=== PATIENT | male | born 1980 | race Two or more races ===

== ENCOUNTER 2016-06-25 13:22 | Emergency (ER) | payer OTHER ==
[~2016-06-25] VITALS: Ht 177.8 cm; Wt 73.8 kg
[2016-06-25 13:26] VITALS: BP 156/88; PULSE 81; RESP 18; TEMP 99.7; O2SAT 97
[2016-06-25] MEDS ORDERED: ONDANSETRON HCL 4 MG/2 ML VIAL IVP ONE (13:45)
[2016-06-25] MEDS ORDERED: HYDROmorphone HCL PF 1 MG/ML VIAL IVS ONE (13:45)
[2016-06-25] MEDS ORDERED: SODIUM CHLORIDE 0.9% FLUSH 10 ML FLUSH IV FLUSH PRN (13:45)
[2016-06-25] MEDS ORDERED: SODIUM CHLOR 0.9% 1000 ML INJ 1,000 ML IV SCH (13:45)
[2016-06-25 13:49] VITALS: BP 161/95; PULSE 70; RESP 16; O2SAT 97; O2SAT 98
--- NOTE | 2016-06-25 14:05 | PD ---
HPI Chief Complaint: Injury Time Seen by Provider: 13:39 Travel History International Travel<30 days: No Contact w/Intl Traveler<30days: No Traveled to known affect area: No History of Present Illness HPI 36-year-old male arrives by private vehicle. He was struck in the chest 7 foot foot metal beam about 6 hours prior to ER arrival. A loss of consciousness ensued afterwards. Prior to he was somewhat dyspneic. He remembers waking up with friends around. Since then he sat himself down and rested. He reports feeling fatigued since then. He has mild persistent chest pain in the area where he was injured. In the ER he is no shortness of breath. PFSH Past Medical History Medical History: Denies Significant Hx Diabetes: Yes (WATCH DIET) Diminished Hearing: No Tetanus Vaccination: < 5 Years Influenza Vaccination: No Past Surgical History Surgical History: No Previous Surgery Social History Alcohol Use: Yes (OCC) Tobacco Use: No Substance Use: No Allergies-Medications (Allergen,Severity, Reaction): Coded Allergies: No Known Allergies (Unverified , 06/25/16) Reported Meds & Prescriptions Reported Meds & Active Scripts Active Motrin Ib (Ibuprofen) 200 Mg Tab 600 Mg PO Q6H PRN 10 Days Review of Systems Except as stated in HPI: all other systems reviewed are Neg General / Constitutional: No: Fever Physical Exam Narrative GENERAL: 36-year-old male pleasant well-nourished well-developed SKIN: Focused skin assessment warm/dry. HEAD: Atraumatic. Normocephalic. EYES: Pupils equal and round. No scleral icterus. No injection or drainage. ENT: No nasal bleeding or discharge. Mucous membranes pink and moist. NECK: Trachea midline. No JVD. CARDIOVASCULAR: Regular rate and rhythm. No murmur appreciated. Linear erythema along the left anterior chest wall 2 cm x 7 cm. Minimal tenderness with pressure against the sternum. RESPIRATORY: No accessory muscle use. Clear to auscultation. Breath sounds equal bilaterally. GASTROINTESTINAL: Abdomen soft, non-tender, nondistended. Hepatic and splenic margins not palpable. MUSCULOSKELETAL: No obvious deformities. No clubbing. No cyanosis. No edema. NEUROLOGICAL: Awake and alert. No obvious cranial nerve deficits. Motor grossly within normal limits. Normal speech. PSYCHIATRIC: Appropriate mood and affect; insight and judgment normal. Data Data Last Documented VS Vital Signs Date Time Temp Pulse Resp B/P Pulse Ox O2 Delivery O2 Flow Rate FiO2 06/25/16 16:56 Room Air 06/25/16 16:56 80 16 117/88 100 06/25/16 13:26 99.7 Vital signs reviewed Orders Complete Blood Count With Diff (06/25/16 13:45) Comprehensive Metabolic Panel (06/25/16 13:45) Lipase (06/25/16 13:45) Urinalysis - C+S If Indicated (06/25/16 13:45) Iv Access Insert/Monitor (06/25/16 13:45) Ecg Monitoring (06/25/16 13:45) Oximetry (06/25/16 13:45) Ondansetron Inj (Zofran Inj) (06/25/16 13:45) Sodium Chlor 0.9% 1000 Ml Inj (Ns 1000 M (06/25/16 13:45) Sodium Chloride 0.9% Flush (Ns Flush) (06/25/16 13:45) Electrocardiogram (06/25/16 13:45) Chest, Single Ap (06/25/16 13:45) Hydromorphone Pf Inj (Dilaudid Pf Inj) (06/25/16 13:45) Forearm (2vws) (06/25/16 14:57) Ice/Cold Pack (06/25/16 14:57) Elbow, Complete (4 Vws) (06/25/16 14:59) Humerus (Min 2vws) (06/25/16 14:59) Labs Laboratory Tests Test 06/25/16 06/25/16 14:00 14:50 White Blood Count 10.4 TH/MM3 Red Blood Count 5.09 MIL/MM3 Hemoglobin 14.7 GM/DL Hematocrit 44.4 % Mean Corpuscular Volume 87.3 FL Mean Corpuscular Hemoglobin 28.9 PG Mean Corpuscular Hemoglobin 33.1 % Concent Red Cell Distribution Width 12.4 % Platelet Count 265 TH/MM3 Mean Platelet Volume 8.5 FL Neutrophils (%) (Auto) 87.3 % Lymphocytes (%) (Auto) 8.4 % Monocytes (%) (Auto) 3.1 % Eosinophils (%) (Auto) 0.0 % Basophils (%) (Auto) 1.2 % Neutrophils # (Auto) 9.1 TH/MM3 Lymphocytes # (Auto) 0.9 TH/MM3 Monocytes # (Auto) 0.3 TH/MM3 Eosinophils # (Auto) 0.0 TH/MM3 Basophils # (Auto) 0.1 TH/MM3 CBC Comment DIFF FINAL Differential Comment Sodium Level 141 MEQ/L Potassium Level 4.1 MEQ/L Chloride Level 104 MEQ/L Carbon Dioxide Level 26.6 MEQ/L Anion Gap 10 MEQ/L Blood Urea Nitrogen 15 MG/DL Creatinine 1.30 MG/DL Estimat Glomerular Filtration 62 ML/MIN Rate Random Glucose 107 MG/DL Calcium Level 9.6 MG/DL Total Bilirubin 0.8 MG/DL Aspartate Amino Transf 21 U/L (AST/SGOT) Alanine Aminotransferase 29 U/L (ALT/SGPT) Alkaline Phosphatase 91 U/L Total Protein 8.4 GM/DL Albumin 4.2 GM/DL Lipase 117 U/L Urine Color YELLOW Urine Turbidity CLEAR Urine pH 7.0 Urine Specific [place] 1.003 Urine Protein NEG mg/dL Urine Glucose (UA) NEG mg/dL Urine Ketones NEG mg/dL Urine Occult Blood NEG Urine Nitrite NEG Urine Bilirubin NEG Urine Leukocyte Esterase NEG Microscopic Urinalysis Comment CULT NOT INDICATED MDM Medical Decision Making Medical Screen Exam Complete: Yes Emergency Medical Condition: Yes Differential Diagnosis Rib fracture, pulmonary contusion, splenic injury, arrhythmia, dehydration Narrative Course CBC & BMP Diagram 06/25/16 14:00 LFTs normal Lipase normal UA normal Last 24 hours Impressions Humerus X-Ray 06/25/16 1459 Signed Impressions: Service Date/Time: June 15:38 - CONCLUSION: No acute osseous injury. Flaquito Monroy MD Elbow X-Ray 06/25/16 1459 Signed Impressions: Service Date/Time: June 15:20 - CONCLUSION: No acute fracture or effusion. Flaquito Monroy MD Radius/Ulna X-Ray 06/25/16 1457 Signed Impressions: Service Date/Time: June 15:23 - CONCLUSION: No acute osseous injury. Flaquito Monroy MD Chest X-Ray 06/25/16 1345 Signed Impressions: Service Date/Time: June 14:20 - CONCLUSION: The lungs are clear. Mitchell Wood MD The patient is resting comfortably and feels better, is alert and in no distress. The patients results and examination findings were discussed. The repeat examination is unremarkable and benign. The history, exam, diagnostic testing, and current condition do not suggest any significant pathology to warrant further testing, continued ED treatment, admission, or surgical evaluation at this point. The vital signs have been stable. The patient does not have uncontrollable pain, intractable vomiting, or other significant symptoms. The patient's condition is stable and appropriate for discharge. The patient will pursue further outpatient evaluation with a primary care physician or other designated or consulting physician as indicated in the discharge instructions. The patient expressed understanding and was agreeable with this plan. Diagnosis Primary Impression: Chest wall injury Qualified Code: S29.9XXA - Chest wall injury, initial encounter Additional Impressions: Syncope and collapse Injury of left upper extremity Qualified Code: S49.92XA - Injury of left upper extremity, initial encounter Referrals: Primary Care Physician 2 days Additional Instructions: You have a choice when it comes to health care, and we are glad that you chose [facility]. Hopefully, we have met your expectations on today's visit. You are welcome to return to [facility] at any time, as we are committed to meeting the health care needs of our community. Med/Other Pt SpecificInfo: Prescription(s) given Scripts Ibuprofen (Motrin Ib)200 Mg [id number] Mg PO Q6H PRN (PAIN SCALE 6 TO 10) 10 Days Ref 0 Prov:Kevan Best MD 06/25/16 Disposition: 01 DISCHARGE HOME Condition: Stable Kevan Best MD Jun 25, 2016 14:05
[2016-06-25 14:22] LABS: AUTOMATED NEUTROPHIL # 9.1 TH/MM3 (1.8-7.7); BASOPHIL # 0.1 TH/MM3 (0-0.2); BASOPHIL % 1.2 % (0.0-2.0); HEMATOCRIT 44.4 % (39.0-51.0); LYMPH % 8.4 % (9.0-44.0); LYMPHOCYTE # 0.9 TH/MM3 (1.0-4.8); MEAN CELL VOLUME 87.3 FL (80.0-100.0); MEAN CORPUSCULAR HEMOGLOBIN 28.9 PG (27.0-34.0); MEAN CORPUSCULAR HGB CONC 33.1 % (32.0-36.0); MONO % 3.1 % (0.0-8.0); NEUT % 87.3 % (16.0-70.0); PLATELET COUNT 265 TH/MM3 (150-450); RED BLOOD COUNT 5.09 MIL/MM3 (4.50-5.90); RED CELL DISTRIBUTION WIDTH 12.4 % (11.6-17.2); WHITE BLOOD COUNT 10.4 TH/MM3 (4.0-11.0)
[2016-06-25 14:30] LABS: CHLORIDE 104 MEQ/L (98-107); HEMO FLAGS DIFF FINAL; POTASSIUM 4.1 MEQ/L (3.5-5.1); SODIUM (NA) 141 MEQ/L (136-145)
[2016-06-25 14:34] LABS: ANION GAP 10 MEQ/L (5-15); BICARBONATE 26.6 MEQ/L (21.0-32.0); BLOOD UREA NITROGEN 15 MG/DL (7-18)
[2016-06-25 14:37] LABS: ALT (GPT) 29 U/L (12-78); AST (GOT) 21 U/L (15-37); GLOMERULAR FILTRATION RATE 62 ML/MIN (>89)
[2016-06-25 14:39] LABS: TOTAL BILIRUBIN ADULT 0.8 MG/DL (0.2-1.0)
[2016-06-25 14:40] LABS: ALKALINE PHOSPHATASE 91 U/L (45-117)
[2016-06-25 15:00] LABS: BLOOD, URINE NEG (NEG); GLUCOSE,URINE NEG (NEG); KETONE, URINE NEG (NEG); NITRITE,URINE NEG (NEG)
[2016-06-25 15:02] VITALS: BP 161/95; PULSE 100; RESP 16; O2SAT 100
[2016-06-25 15:05] LABS: URINE COLOR YELLOW (YELLW/STRAW)
[2016-06-25 15:06] LABS: COMMENT (UR) CULT NOT INDICATED; CULTURE IF INDICATED CULT NOT INDICATED
--- NOTE | 2016-06-25 15:18 | RADHPO ---
EXAM DATE/TIME: 06/25/2016 14:20 [facility] COMPARISON: No previous studies available for comparison. INDICATIONS : Left anterior chest pain post being hit with metal beam. MEDICAL HISTORY : None. SURGICAL HISTORY : None. ENCOUNTER: Initial ACUITY: 1 day PAIN SCORE: 7/10 LOCATION: Left anterior chest FINDINGS: A single view of the chest demonstrates the lungs to be symmetrically aerated without evidence of mas s, infiltrate or effusion. The cardiomediastinal contours are unremarkable. Healed fracture of mids haft right clavicle.. CONCLUSION: The lungs are clear. Mitchell Wood MD on June 25, 2016 at 15:16 Board Certified Radiologist. This report was verified electronically.
[2016-06-25] MEDS ORDERED: MOTR200T4 PO (16:29)
--- NOTE | 2016-06-25 16:34 | RADHPO ---
EXAM DATE/TIME: 06/25/2016 15:20 [facility] COMPARISON: No previous studies available for comparison. INDICATIONS : Left elbow pain. Hit by metal at work. MEDICAL HISTORY : None. SURGICAL HISTORY : None. ENCOUNTER: Initial ACUITY: 1 day PAIN SCORE: 7/10 LOCATION: Left elbow FINDINGS: Multiple view examination of the left elbow demonstrates no soft tissue swelling, joint effusion, or fracture. The osseous structures are in normal alignment. Bony mineralization is normal. CONCLUSION: No acute fracture or effusion. Flaquito Monroy MD on June 25, 2016 at 16:32 Board Certified Radiologist. This report was verified electronically.
--- NOTE | 2016-06-25 16:35 | RADHPO ---
EXAM DATE/TIME: 06/25/2016 15:23 [facility] COMPARISON: No previous studies available for comparison. INDICATIONS : Left forearm pain. Hit by metal at work. MEDICAL HISTORY : None. SURGICAL HISTORY : None. ENCOUNTER: Initial ACUITY: 1 day PAIN SCORE: 7/10 LOCATION: Left forearm. FINDINGS: Two view examination of the left forearm demonstrates no evidence of fracture or dislocation. Bony m ineralization is normal. The soft tissue structures are intact. CONCLUSION: No acute osseous injury. Flaquito Monroy MD on June 25, 2016 at 16:33 Board Certified Radiologist. This report was verified electronically.
[2016-06-25 16:56] VITALS: BP 117/88; PULSE 80; RESP 16; O2SAT 100
--- NOTE | 2016-06-25 16:59 | RADHPO ---
EXAM DATE/TIME: 06/25/2016 15:38 [facility] COMPARISON: No previous studies available for comparison. INDICATIONS : Left arm pain. Hit by piece of metal at work. MEDICAL HISTORY : None. SURGICAL HISTORY : None. ENCOUNTER: Initial ACUITY: 1 day PAIN SCORE: 9/10 LOCATION: Left humerus FINDINGS: Two view examination of the left humerus demonstrates no evidence of fracture or dislocation. Bony m ineralization is normal. The soft tissue structures are intact. CONCLUSION: No acute osseous injury. Flaquito Monroy MD on June 25, 2016 at 16:57 Board Certified Radiologist. This report was verified electronically.
--- NOTE | 2016-06-26 13:43 | EKG ---
Date Performed: 06/25/2016 Time Performed: 13:57:06 PTAGE: 36 years EKG: Sinus rhythm rSr'(V1) - probable normal variant Septal T wave changes are nonspecific Borderline ECG NO PREVIOUS TRACING DOCTOR: Alejandro Barrios Interpretating Date/Time 06/26/2016 13:38:11
== END 2016-06-25 16:56 | disposition home or self-care (01) ==
LOC: PHED 13:22
DX: S29.9XXA Unspecified injury of thorax, initial encounter (principal); R55 Syncope and collapse; S49.92XA Unspecified injury of left shoulder and upper arm, initial encounter; R53.83 Other fatigue; R94.31 Abnormal electrocardiogram [ECG] [EKG]; E11.9 Type 2 diabetes mellitus without complications; W22.8XXA Striking against or struck by other objects, initial encounter
CPT/HCPCS: 71010; 73060; 73080; 73090; 80053; 81001; 83690; 85025; 93005; 96361; 96374; 96375; 99284; J1170; J2405; J7030

== ENCOUNTER 2016-06-30 13:09 | Emergency (ER) | payer OTHER ==
[~2016-06-30] VITALS: Ht 177.8 cm; Wt 72.4 kg
[~2016-06-30 13:09] MED LIST: MOTR200T4 PO
[2016-06-30 13:13] VITALS: BP 172/95; PULSE 65; RESP 16; TEMP 98.3; O2SAT 98
--- NOTE | 2016-06-30 15:35 | PD ---
HPI Chief Complaint: Injury Time Seen by Provider: 15:35 Travel History International Travel<30 days: No Contact w/Intl Traveler<30days: No Traveled to known affect area: No History of Present Illness HPI 36-year-old male presents to the ED for evaluation of left posterior shoulder pain. Onset gradual over the last week. Worsened by certain movements. Patient denies numbness, tingling, weakness, limitations to range of motion of the left upper extremity. The patient states that he was struck in the left chest by a beam on the job site 1 week ago. He momentarily lost consciousness and was brought to [facility] for evaluation. He was diagnosed with contusion and provided a prescription for ibuprofen. He endorses compliance with the medication and improvement of his pain but not complete resolution. PFSH Past Medical History Medical History: Denies Significant Hx Hx Anticoagulant Therapy: No Cardiovascular Problems: No Chemotherapy: No Cerebrovascular Accident: No Diabetes: No Diminished Hearing: No Respiratory: No Influenza Vaccination: No Past Surgical History Surgical History: No Previous Surgery Hysterectomy: No Social History Alcohol Use: No Tobacco Use: No Substance Use: No Allergies-Medications (Allergen,Severity, Reaction): Coded Allergies: No Known Allergies (Unverified , 06/30/16) Reported Meds & Prescriptions Reported Meds & Active Scripts Active Flexeril (Cyclobenzaprine HCl) 10 Mg Tab 10 Mg PO TID Motrin Ib (Ibuprofen) 200 Mg Tab 600 Mg PO Q6H PRN 10 Days Review of Systems Except as stated in HPI: all other systems reviewed are Neg Physical Exam Narrative GENERAL: Well-nourished, well-developed male in no acute distress. SKIN: Focused skin assessment warm/dry. No ecchymosis of the posterior left shoulder. Superficial abrasion of the left chest and left elbow without signs of infection. HEAD: Normocephalic. EYES: No scleral icterus. No injection or drainage. NECK: Supple, trachea midline. No JVD or lymphadenopathy. TTP palpation of the left trapezius muscle. CARDIOVASCULAR: Regular rate and rhythm without murmurs, gallops, or rubs. RESPIRATORY: Breath sounds equal bilaterally. No accessory muscle use. GASTROINTESTINAL: Abdomen soft, non-tender, nondistended. MUSCULOSKELETAL: No cyanosis, or edema. Focused left upper extremity exam: 2+ radial pulse. No tenderness to palpation. Patient retains full, active, painless range of motion of the shoulder, elbow and wrist. Neurovascularly intact. BACK: No obvious deformity. No CVA tenderness. TTP with mild spasm of the left mid thoracic paraspinal musculature. Data Data Last Documented VS Vital Signs Date Time Temp Pulse Resp B/P Pulse Ox O2 Delivery O2 Flow Rate FiO2 06/30/16 13:17 Room Air 06/30/16 13:13 98.3 65 16 172/95 98 MDM Medical Decision Making Medical Screen Exam Complete: Yes Emergency Medical Condition: Yes Medical Record Reviewed: Yes Differential Diagnosis Contusion versus muscle strain versus muscle spasm versus other Narrative Course 36-year-old male presents to the ED for evaluation of left posterior shoulder pain. Onset gradual over the last week. Worsened by certain movements. Patient denies numbness, tingling, weakness, limitations to range of motion of the left upper extremity. The patient states that he was struck in the left chest by a beam on the job site 1 week ago. He momentarily lost consciousness and was brought to [facility] for evaluation. He was diagnosed with contusion and provided a prescription for ibuprofen. Vitals reviewed. Physical exam reveals a nontoxic-appearing male in no acute distress. There is some muscular tenderness of the left sided paraspinal musculature but no deficit of strength or loss of range of motion. I suspect this is muscle strain and spasm secondary to guarding the injury of the chest. Patient is instructed to continue with ibuprofen, limit heavy lifting and exertional activity, warm compresses and gentle massage as tolerated. He was provided a short course of Flexeril. He is instructed to take the medication as prescribed, cautioned not to drive while taking the medication. He should follow-up with the worker's comp doctor at his employer. He indicated understanding of the instructions and is agreeable to the care plan. This patient is stable and discharged home. Diagnosis Primary Impression: Muscle strain Additional Impression: Muscle spasm Referrals: Primary Care Physician Patient Instructions: General Instructions, Muscle Spasm (ED), Muscle Strain ( ED) Departure Forms: Tests/Procedures, Work Release Enter return to work date: Jul 01, 2016 Special Instructions: No overuse of the left arm. No lifting greater than 20 pounds at the left arm 2 weeks. Additional Instructions: Rest, hydrate. Continue with ibuprofen as previously prescribed. Flexeril up to 3 times a day as needed for muscle spasm and pain. Do not drive when taking Flexeril. Warm compresses applied to areas of pain may also help to reduce symptoms. Follow-up with the Worker's Comp. physician or your primary care provider. Return to the ED for any urgent or emergent medical condition. Med/Other Pt SpecificInfo: Prescription(s) given Scripts Cyclobenzaprine (Flexeril)10 Mg Tab10 Mg PO TID #15 TAB Ref 0 Prov:Carl Reynolds MD 06/30/16 Disposition: 01 DISCHARGE HOME Condition: Stable Shivani Knutson Jun 30, 2016 15:35
[2016-06-30] MEDS ORDERED: CYCL1TAB29 PO (15:49)
== END 2016-06-30 16:00 | disposition home or self-care (01) ==
LOC: PHEFT 13:09
DX: S46.812D Strain of other muscles, fascia and tendons at shoulder and upper arm level, left arm, subsequent encounter (principal); M62.838 Other muscle spasm; W22.8XXD Striking against or struck by other objects, subsequent encounter; Y99.0 Civilian activity done for income or pay
CPT/HCPCS: 99282